=== PATIENT | male | born 1985 | race African-American/Black ===

== ENCOUNTER 2017-02-28 13:35 | Inpatient (IN) | payer OTHER ==
[~2017-02-28] VITALS: Ht 172.7 cm; Wt 91.2 kg
[~2017-02-28 13:35] MED LIST: KEFLEX500 MG PO; LORTAB 5-325 M1 EACH PO; MEDROL DOSEPAK4 MG PO; NAPROXEN500 MG PO; ROBITUSSIN100 MG/5 M PO
[2017-02-28 14:33] LABS: ADD MIUA? YES; BILIRUBIN NEGATIVE; BLOOD NEGATIVE; COLOR YELLOW ((YELLOW)); GLUCOSE (STRIP) NEGATIVE; KETONES NEGATIVE; LEUKOCYTES SMALL; NITRITE NEGATIVE; PROTEIN (STRIP) NEGATIVE; SPECIFIC GRAVITY 1.013 (1.000-1.030); UROBILINOGEN 0.2 MG/DL (0.2-1.0)
[2017-02-28 14:37] LABS: HEMATOCRIT 44.1 % (38.0-50.0); MCH 29.1 PG (29.0-34.0); MCHC 34.7 G/DL (30.0-36.0); MEAN PLAT.VOLUME 10.3 uM^3 (9.0-12.4); PLATELET COUNT 228 K/uL (156-360); RBC DIS.WIDTH-CV 14.3 % (11.8-14.6); RBC DIS.WIDTH-SD 43.5 % (39-53); RED BLOOD COUNT 5.25 M/uL (4.00-5.50); WHITE BLOOD COUNT 5.7 K/uL (4.1-10.2)
[2017-02-28 14:43] LABS: BACTERIA RARE /HPF; EPITHELIAL CELLS RARE /HPF; MUCUS NONE SEEN /LPF; RED BLOOD CELLS 0-5 /HPF (0-5)
[2017-02-28 14:51] LABS: CHLORIDE 106 mEq/L (99-109); POTASSIUM 4.3 mEq/L (3.7-5.4); SODIUM 138 mEq/L (136-147)
[2017-02-28 14:53] LABS: GLUCOSE 91 mg/dL (70-99)
[2017-02-28 14:54] LABS: ANION GAP 7 MEQ/L (2-14)
[2017-02-28 14:55] LABS: TOTAL BILIRUBIN 0.9 mg/dL (0.0-1.0)
[2017-02-28 14:56] LABS: SERUM ETHYL ALCOHOL < 10 mg/dL
[2017-02-28 14:57] LABS: ALKALINE PHOSPHATASE 92 IU/L (3-129); GFR ESTIMATE (CALCULATED) > 59 mL/min/ (58.99-99999)
[2017-02-28 14:58] LABS: UREA NITROGEN (BUN) 14 mg/dL (9-23)
[2017-02-28 15:39] LABS: ADD MEDTOX COMMENT Y; AMPHETAMINE NEGATIVE (500 ng/mL); BARBITURATES NEGATIVE (200 ng/mL); BENZODIAZEPINES NEGATIVE (150 ng/mL); COCAINE NEGATIVE (150 ng/mL); INTERNAL CONTROLS VALID? YES; METHADONE NEGATIVE (200 ng/mL); METHAMPHETAMINE NEGATIVE (500 ng/mL); OPIATES (MORPHINE) NEGATIVE (100 ng/mL); OXYCODONE NEGATIVE (100 ng/mL); PHENCYCLIDINE NEGATIVE (25 ng/mL); PROPOXYPHENE NEGATIVE (300 ng/mL); THC CANNABINOIDS PRESUMPTIVE POSITIVE (50 ng/mL); TRICYCLIC ANTIDEPRESSANTS NEGATIVE (300 ng/mL)
[2017-02-28 17:58] VITALS: BP 143/89
[2017-03-01 07:59] VITALS: BP 109/63
[2017-03-01 15:44] VITALS: BP 102/50
[2017-03-02 07:59] VITALS: BP 116/70
[2017-03-02 15:26] VITALS: BP 104/62
[2017-03-03 07:47] VITALS: BP 109/67; BP 132/76
[2017-03-03 15:19] VITALS: BP 109/55
[2017-03-04 07:39] VITALS: BP 97/53
[2017-03-04] MEDS ORDERED: CITALOPRAM HBR20 MG PO (11:10)
[2017-03-04] MEDS ORDERED: TRAZODONE HCL50 MG PO (11:10)
== END 2017-03-04 14:04 | disposition home or self-care (01) | DRG 882 ==
LOC: EME 13:35 → 1WEST 15:39 → EDOF 15:39 → ENRESERV 17:49 → 1WEST 17:49
PROVIDERS: Emergency Medicine
DX: F43.23 Adjustment disorder with mixed anxiety and depressed mood (principal); R45.851 Suicidal ideations; F43.25 Adjustment disorder with mixed disturbance of emotions and conduct; F12.90 Cannabis use, unspecified, uncomplicated; F17.200 Nicotine dependence, unspecified, uncomplicated; Z91.5 Personal history of self-harm
CPT/HCPCS: 80053; 81003; 84999; 85027; 90686; 90839; 99281; 99285; G0480